=== PATIENT | female | born 1930 | race Caucasian/White ===

== ENCOUNTER → 2016-08-11 | Day surgery (SDC) | payer MEDICARE ==
[~2016-08-11] MED LIST: Acetaminophen TAB* 325 MG PO PRN; Buffered Lidocaine 1% SYR 3ML* 3 ML/SYR SYRINGE INTRADERM ONE; Buffered Lidocaine 1% SYR 3ML* 3 ML/SYR SYRINGE ONE; Cyclopentolate 1% OPTH.SOL* 2 ML BTL ONE; Flurbiprofen 0.03% OPTH.SOL* 2.5 ML BTL ONE; Lidocaine 1% MPF* 2 ML VIAL ONE; Lidocaine 2% EPI 1:200000 MPF* 20 ML VIAL ONE; Midazolam* 1 MG/ML 2 ML VIAL (2 MG) ONE; Neomycin/Polymy/Dex OPTH.SUSP* MAXITROL 0.1% 5 ML ONE; Phenylephrine 2.5% OPTH.SOL* 2 ML BTL ONE; Povidone Iodine 5% OPTH* 30 ML BTL ONE; Proparacaine 0.5% OPHTH.SOL* 15 ML BTL ONE; acetaZOLAMIDE TAB* 250 MG ONE
[2016-08-11 09:57] VITALS: BP 154/48
--- NOTE | 2016-08-11 11:26 | OP ---
OPERATIVE NOTE: DATE OF OPERATION: 08/11/16 DATE OF : 34 SURGEON: Danish Ronquillo MD PREOPERATIVE DIAGNOSIS: Cataract, right eye. POSTOPERATIVE DIAGNOSIS: Cataract, right eye. OPERATIVE PROCEDURE: Phacoemulsification, right eye with IOL. PROCEDURE: The patient was brought to the operating room after being given 1/2% Alcaine with epinep hrine drops in the preoperative area. The eye was prepped and draped in the usual sterile fashion. Sterile drape and eyelid speculum were placed. Again, topical 1/2% Alcaine with epinephrine was gi flakita. A paracentesis incision was made at the 9 o'clock position with the No.75 blade. Clear cornea incision 2.2 x 2.2-mm was created at the 12 o'clock position starting at the anterior limbus using the 2.2-mm keratome. The anterior chamber was irrigated with 0.4 mL of 1% non-preservative intracam eral lidocaine and filled with DisCoVisc. A capsulorrhexis was completed using the cystotome and emely e Utrata forceps. Hydrodissection was performed with balanced salt solution. The lens nucleus was r emoved with the Phacoemulsification handpiece without incident. Cortex was removed with the irrigat ion-aspiration handpiece. The capsular bag was re-inflated using DisCoVisc and an [id number] 21 implant was inserted with the shooter. The irrigation-aspiration handpiece was used to remove all residual DisCoVisc. The eye was refilled with balanced salt solution and the wound checked and found to be watertight. Topical Maxitrol drops were given. [id number]/[facility] #: [id number]
== END | disposition home or self-care (01) ==
LOC: OREAST 07:08
PROVIDERS: ATTEND Specialist
DX: H25.11 Age-related nuclear cataract, right eye (principal); E11.9 Type 2 diabetes mellitus without complications; I10 Essential (primary) hypertension; E78.2 Mixed hyperlipidemia; I25.10 Atherosclerotic heart disease of native coronary artery without angina pectoris
CPT/HCPCS: A9270-GY; J2250; V2632

== ENCOUNTER → 2016-08-18 06:21 | Day surgery (SDC) | payer MEDICARE ==
[~2016-08-18 06:21] MED LIST changes: +fentaNYL* 50 MCG/ML 2 ML VIAL (100 MCG VIAL) ONE
[2016-08-18 08:05] VITALS: BP 157/47
--- NOTE | 2016-08-18 22:06 | OP ---
DATE OF OPERATION: 08/18/16 [facility] DATE OF : 34 SURGEON: Danish Ronquillo M.D. PREOPERATIVE DIAGNOSIS: Cataract, left eye. POSTOPERATIVE DIAGNOSIS: Cataract, left eye. OPERATIVE PROCEDURE: Phacoemulsification, left eye with IOL. DESCRIPTION OF PROCEDURE: The patient was brought to the operating room after being given 1/2% Alcaine with epinephrine drops in the preoperative area. The eye was prepped and draped in the usual sterile fashion. Sterile drape and eyelid speculum were placed. Again, topical 1/2% Alcaine with epinephrine was given. A paracentesis incision was made at the 3 o'clock position with the No.75 blade. Clear cornea incision 2.2 x 2.2-mm was created at the 6 o'clock position starting at the anterior limbus using the 2.2-mm keratome. The anterior chamber was irrigated with 0.4 mL of 1% non-preservative intracameral lidocaine and filled with DisCoVisc. A capsulorrhexis was completed using the cystotome and the Utrata forceps. Hydrodissection was performed with balanced salt solution. The lens nucleus was removed with the Phacoemulsification handpiece without incident. Cortex was removed with the irrigation-aspiration handpiece. The capsular bag was re-inflated using DisCoVisc and an SN60WF 21.5 implant was inserted with the shooter. The irrigation-aspiration handpiece was used to remove all residual DisCoVisc. The eye was refilled with balanced salt solution and the wound checked and found to be watertight. Topical Maxitrol drops were given. [id number]/[facility] #: [id number] [facility]
== END | disposition home or self-care (01) ==
LOC: OREAST 06:21
PROVIDERS: ATTEND Specialist
DX: H25.12 Age-related nuclear cataract, left eye (principal); I25.10 Atherosclerotic heart disease of native coronary artery without angina pectoris; Z95.818 Presence of other cardiac implants and grafts; E11.9 Type 2 diabetes mellitus without complications; I10 Essential (primary) hypertension; E78.5 Hyperlipidemia, unspecified
CPT/HCPCS: A9270-GY; J2250; J3010; V2632